=== PATIENT | female | born 1980 | race Caucasian/White ===

== ENCOUNTER 2021-04-27 12:51 | Emergency (ER) | payer OTHER ==
[2021-04-27 13:06] VITALS: BP 129/96
[2021-04-27] MEDS ORDERED: predniSONE 20 MG TABLET PO STA (13:19)
[2021-04-27] MEDS ORDERED: BENZONATATE 100 MG CAPSULE PO STA (13:19)
[2021-04-27] MEDS ORDERED: ALBUTEROL 1 PUFF INH STA (13:19)
--- NOTE | 2021-04-27 13:26 | ED Physician Documentation ---
History of Present Illness - Stated complaint Stated Complaint: FEVER/COUGH - Chief complaint Chief Complaint: Heent - History obtained from History obtained from: Patient - History of Present Illness Timing: How many days ago (4) Pain level max: 3 Pain level now: 2 - Additonal information Additional information: Patient is a 41-year-old female who recently drove here from [place]. Over the past 4 days has developed subjective fevers at home. Coughing, sore throat, rhinorrhea and congestion. Occasionally productive of brown sputum. She states that she has used inhalers in the past when she has become ill. Nothing makes it better or worse. She does have her Covid vaccination. Review of Systems Constitutional: reports: Chills Nose: reports: Rhinorrhea / runny nose, Congestion Throat: reports: Sore throat Respiratory: reports: Cough, Wheezing GI: denies: Abdominal Pain, Nausea, Vomiting, Diarrhea : denies: Dysuria, Now EGA Skin: denies: Rash Musculoskeletal: denies: Neck pain, Back pain PD PAST MEDICAL HISTORY - Past Medical History Past Medical History: Yes Endocrine/Autoimmune: Type 2 diabetes - Past Surgical History Past Surgical History: No - Present Medications Home Medications: Ambulatory Orders Medication Instructions Recorded Confirmed metFORMIN [Glucophage] 500 mg PO BIDWM 06/02/16 06/02/16 Albuterol Sulf [Ventolin Hfa 1 - 2 puffs INH Q4HR PRN #1 inhaler 04/27/21 Inhaler] Benzonatate [Tessalon] 200 mg PO TID PRN #30 cap 04/27/21 predniSONE [Deltasone] 40 mg PO DAILY #10 tablet 04/27/21 - Allergies Allergies/Adverse Reactions: Allergies Allergy/AdvReac Type Severity Reaction Status Date / Time cephalexin monohydrate * Allergy Rash Verified 04/27/21 13:06 [From Keflex] Penicillins Allergy Hives Verified 04/27/21 13:06 Sulfa (Sulfonamide Allergy Rash Verified 04/27/21 13:06 Antibiotics) - Social History Does the pt smoke?: No Smoking Status: Never smoker Does the pt drink ETOH?: No Does the pt have substance abuse?: No - Immunizations Immunizations are current?: Yes - POLST Patient has POLST: No PD ED PE NORMAL - Vitals Vital signs reviewed: Yes - General General: Alert and oriented X 3, No acute distress, Well developed/nourished - HEENT HEENT: PERRL, Ears normal, Moist mucous membranes, Pharynx benign, Other (No tonsillar exudates. Uvula midline. Normal phonation. No trismus. No stridor.) - Neck Neck: Supple, no meningeal sign, No adenopathy - Cardiac Cardiac: RRR - Respiratory Respiratory: No respiratory distress, Other (Mild wheezing and diminished breath sounds bilaterally) - Abdomen Abdomen: Soft, Non tender, Non distended - Derm Derm: Warm and dry, No rash - Extremities Extremities: No edema - Neuro Neuro: Alert and oriented X 3 - Psych Psych: Normal mood, Normal affect Results - Vitals Vitals: Vital Signs - 24 hr 04/27/21 04/27/21 13:03 13:33 Temperature 36.4 C L Heart Rate 98 62 Respiratory 16 16 Rate Blood Pressure 129/96 H O2 Saturation 96 Oxygen O2 Source Room air PD MEDICAL DECISION MAKING - ED course Complexity details: considered differential, d/w patient ED course: 41-year-old female with what appears to be a viral upper respiratory infection. She is very well-appearing, nontoxic. No evidence of pneumonia clinically. Will hold off on chest x-ray at this time. Will place on albuterol for home as well as steroids. Will prescribe Tessalon Perles as well. Patient counseled regarding signs and symptoms for which I believe and urgent re-evaluation would be necessary. Patient with good understanding of and agreement to plan and is comfortable going home at this time This document was made in part using voice recognition software. While efforts are made to proofread this document, sound alike and grammatical errors may occur. Departure - Departure Disposition: 01 Home, Self Care Clinical Impression: Viral URI Condition: Good Instructions: ED Viral Syndrome Follow-Up: your,doctor in 1 week [Other] Prescriptions: Albuterol Sulf [Ventolin Hfa Inhaler] 1 - 2 puffs INH Q4HR PRN #1 inhaler PRN Reason: Shortness Of Air/Wheezing predniSONE [Deltasone] 40 mg PO DAILY #10 tablet Benzonatate [Tessalon] 200 mg PO TID PRN #30 cap PRN Reason: Cough Comments: Follow-up with your doctor for further care. Return if you worsen. Drink plenty of fluids and rest.
== END 2021-04-27 13:53 | disposition home or self-care (01) ==
LOC: ED 12:51
DX: J06.9 Acute upper respiratory infection, unspecified (principal); E11.9 Type 2 diabetes mellitus without complications; Z79.84 Long term (current) use of oral hypoglycemic drugs
CPT/HCPCS: 94640; 99283; 99284; A9270; J7512

== ENCOUNTER 2021-05-12 18:03 | Emergency (ER) | payer OTHER ==
[2021-05-12] MEDS ORDERED: ONDANSETRON 4 MG/2 ML VIAL IVP STA (18:35)
[2021-05-12] MEDS ORDERED: SODIUM CHLORIDE 0.9% 1,000 ML IV STA (18:35)
[2021-05-12] MEDS ORDERED: HYDROmorphone 1 MG/ML CARPUJECT IVP STA ×2 (18:36→20:27)
[2021-05-12 18:42] LABS: BASOPHILS # (AUTO) 0.1 10^3/uL (0.0-0.1); BASOPHILS % (AUTO) 0.7 %; EOSINOPHILS # (AUTO) 0.2 10^3/uL (0.0-0.7); EOSINOPHILS % (AUTO) 1.5 %; HCT - HEMATOCRIT 44.3 % (37.0-47.0); HGB - HEMOGLOBIN 14.9 g/dL (12.0-16.0); LYMPHOCYTES # (AUTO) 1.7 10^3/uL (1.5-3.5); MEAN CORPUSCULAR HEMOGLOBIN 30.2 pg (27.0-31.0); MEAN CORPUSCULAR HGB CONC 33.6 g/dL (32.0-36.0); MEAN CORPUSCULAR VOLUME 89.9 fL (81.0-99.0); MEAN PLATELET VOLUME 9.8 fL (7.9-10.8); MONOCYTES # (AUTO) 0.6 10^3/uL (0.0-1.0); MONOCYTES % (AUTO) 5.4 %; PLT - PLATELET COUNT 362 10^3/uL (130-450); RED BLOOD COUNT 4.93 10^6/uL (4.20-5.40); WHITE BLOOD COUNT 10.5 x10^3/uL (4.8-10.8)
[2021-05-12 18:55] LABS: ALBUMIN/GLOBULIN RATIO 1.2 (1.0-2.2); BILIRUBIN,TOTAL 1.1 mg/dL (0.2-1.0); CALCIUM 9.1 mg/dL (8.5-10.3); CREATININE 0.8 mg/dL (0.4-1.0); TOTAL PROTEIN 7.3 g/dL (6.7-8.2)
--- NOTE | 2021-05-12 18:57 | ED Physician Documentation ---
History of Present Illness - Stated complaint Stated Complaint: VOMITING/ABD PX/DIARRHEA - Chief complaint Chief Complaint: Abd Pain - Additonal information Additional information: 41-year-old female presents emergency department for evaluation of 2 days periumbilical pain now located in the lower abdomen. She reports that she has been having vomiting and diarrhea as well. Her also had diarrhea and she thought perhaps they had the flu or food poisoning. However given the pain that is unrelenting she returns to the ER. She has had no fevers. Denies bloody output. No dysuria urgency or frequency. She feels very dehydrated. She is crying in the exam room secondary to the pain. Patient does report a history of intermittent diarrhea as well as bowel pain. She has been seen previously by a import specialist. She did for a brief period of time also have C. difficile. She has never had a colonoscopy but they have perhaps suspected that she has an inflammatory bowel disorder. Review of Systems Constitutional: denies: Fever, Chills Eyes: reports: Reviewed and negative Ears: reports: Reviewed and negative Throat: reports: Reviewed and negative Cardiac: reports: Reviewed and negative Respiratory: reports: Reviewed and negative GI: reports: Abdominal Pain, Nausea, Vomiting, Diarrhea : denies: Dysuria, Frequency, Hesitancy Skin: reports: Reviewed and negative PD PAST MEDICAL HISTORY - Past Medical History Endocrine/Autoimmune: Type 2 diabetes - Past Surgical History Past Surgical History: No - Present Medications Home Medications: Ambulatory Orders Medication Instructions Recorded Confirmed Dulaglutide [Trulicity] 1.5 mg PO Q7D 05/12/21 05/12/21 Lisinopril [Zestril] 2.5 mg PO DAILY PM 05/12/21 05/12/21 Metoclopramide [Reglan] 5 mg PO QID PRN 05/12/21 05/12/21 Non Formulary 05/12/21 05/12/21 Ondansetron HCl [Zofran] 8 mg PO Q6HR PRN 05/12/21 05/12/21 Ondansetron Odt [Zofran] 4 mg TL Q6H PRN #10 tablet 05/12/21 Oxycodone HCl/Acetaminophen 1 each PO BID PRN #8 tablet 05/12/21 [Percocet 5-325 mg Tablet] - Allergies Allergies/Adverse Reactions: Allergies Allergy/AdvReac Type Severity Reaction Status Date / Time cephalexin monohydrate * Allergy Rash Verified 04/27/21 13:06 [From Keflex] Penicillins Allergy Hives Verified 04/27/21 13:06 Sulfa (Sulfonamide Allergy Rash Verified 04/27/21 13:06 Antibiotics) vancomycin Allergy Hives Verified 05/12/21 18:22 - Social History Does the pt smoke?: No Smoking Status: Never smoker Does the pt drink ETOH?: No Does the pt have substance abuse?: No - Immunizations Immunizations are current?: Yes - POLST Patient has POLST: No PD ED PE EXPANDED - General General: Alert, In Pain - Cardiac Cardiac: Tachy, Radial strong equal, Pedal strong equal, Cap refill < 2 sec - Respiratory Respiratory: Clear to ausultation santino. No: Distress, Labored - Abdomen Abdomen: Normal Bowel sounds, Tender to palpation, Rebound, Guarding (Periumbilical and right lower quadrant tenderness with rebound.) - Derm Derm: Normal color, Warm and dry. No: Rash - Extremities Extremities: Normal. No: Deformity, Tenderness - Neuro Neuro: Alert and Oriented X 3, CNII-XII intact - GCS Eye Opening: Spontaneous Motor: Obeys Commands Verbal: Oriented Total: 15 Results - Vitals Vitals: Vital Signs - 24 hr 05/12/21 05/12/21 05/12/21 18:22 18:58 19:56 Temperature 36.5 C Heart Rate 97 83 Respiratory 16 Rate Blood Pressure 146/90 H 131/89 H O2 Saturation 98 91 L 94 05/12/21 21:00 Temperature 36.8 C Heart Rate 90 Respiratory 12 Rate Blood Pressure 134/92 H O2 Saturation 96 Oxygen O2 Source Room air - Labs Labs: Laboratory Tests 05/12/21 05/12/21 05/12/21 18:38 18:38 18:38 WBC 10.5 RBC 4.93 Hgb 14.9 Hct 44.3 MCV 89.9 MCH 30.2 MCHC 33.6 RDW 13.0 Plt Count 362 MPV 9.8 Neut # (Auto) 8.0 H Lymph # (Auto) 1.7 [place] # (Auto) 0.6 Eos # (Auto) 0.2 Baso # (Auto) 0.1 Absolute Nucleated RBC 0.00 Nucleated RBC % 0.0 Sodium 138 Potassium 4.0 Chloride 102 Carbon Dioxide 23 Anion Gap 13.0 BUN 11 Creatinine 0.8 Estimated GFR (MDRD) 79 L Glucose 166 H Calcium 9.1 Total Bilirubin 1.1 H AST 35 ALT 36 Alkaline Phosphatase 59 Total Protein 7.3 Albumin 4.0 Globulin 3.3 Albumin/Globulin Ratio 1.2 Lipase 27 HCG, Quant < 0.60 Urine Color Urine Clarity Urine pH Ur Specific [place] Urine Protein Urine Glucose (UA) Urine Ketones Urine Occult Blood Urine Nitrite Urine Bilirubin Urine Urobilinogen Ur Leukocyte Esterase Urine RBC Urine WBC Ur Squamous Epith Cells Amorphous Sediment Urine Bacteria Ur Microscopic Review Urine Culture Comments 05/12/21 19:53 WBC RBC Hgb Hct MCV MCH MCHC RDW Plt Count MPV Neut # (Auto) Lymph # (Auto) [place] # (Auto) Eos # (Auto) Baso # (Auto) Absolute Nucleated RBC Nucleated RBC % Sodium Potassium Chloride Carbon Dioxide Anion Gap BUN Creatinine Estimated GFR (MDRD) Glucose Calcium Total Bilirubin AST ALT Alkaline Phosphatase Total Protein Albumin Globulin Albumin/Globulin Ratio Lipase HCG, Quant Urine Color YELLOW Urine Clarity HAZY Urine pH 5.5 Ur Specific [place] >=1.030 H Urine Protein 30 H Urine Glucose (UA) NEGATIVE Urine Ketones TRACE Urine Occult Blood NEGATIVE Urine Nitrite NEGATIVE Urine Bilirubin NEGATIVE Urine Urobilinogen 0.2 (NORMAL) Ur Leukocyte Esterase NEGATIVE Urine RBC 0-5 Urine WBC 0-3 Ur Squamous Epith Cells FEW Squamous Amorphous Sediment Moderate Urine Bacteria Few Ur Microscopic Review INDICATED Urine Culture Comments NOT INDICATED - Rads (name of study) CT max fac Radiology: Final report received CT head Radiology: Final report received CT abd Radiology: Final report received (Markedly thickened distal small bowel including terminal ileum with surrounding free fluid. Overall appearance is suggestive of small bowel inflammation possible inflammatory bowel disease. The appendix is not definitively identified.) PD MEDICAL DECISION MAKING - ED course Complexity details: reviewed results, re-evaluated patient, d/w patient ED course: 41-year-old female presents emergency department with 2 days of abdominal pain diarrhea and vomiting. Her had similar. She does have a history of C. difficile colitis as well as a history that is suggestive of an inflammatory bowel disorder. Screening labs do not reveal any worrisome findings. Patient was given IV fluids Dilaudid and Zofran with good resolution of the symptoms. Given the history of C. difficile I offered stool testing but she was unable to provide a stool sample. The CT of the abdomen shows a thickened distal small bowel with surrounding free fluid. Given these findings I did offer her Augmentin antibiotic but with her history of C. difficile she is declining. She will be discharged with a prescription for Zofran as well as a limited amount of Aloxi for pain control. Emergent return precautions were discussed for worsening symptoms, fevers worsening diarrhea bloody diarrhea or any other emergent concerns. I am prescribing a short course of short-acting opioid pain medication for this patient. I have reviewed the patients [employer] and no concerning findings were noted. I have discussed that the opioids are for short term therapy only, and will not be refilled from the ED. Departure - Departure Disposition: Home, Self Care Clinical Impression: Inflammation of small intestine Abdominal pain Qualifiers: Abdominal location: generalized Qualified Code(s): R10.84 - Generalized abdominal pain Diarrhea Qualifiers: Diarrhea type: unspecified type Qualified Code(s): R19.7 - Diarrhea, unspecified Condition: Stable Record reviewed to determine appropriate education?: Yes Instructions: Abdominal Pain Prescriptions: Oxycodone HCl/Acetaminophen [Percocet 5-325 mg Tablet] 1 each PO BID PRN #8 tablet PRN Reason: Pain Ondansetron Odt [Zofran] 4 mg TL Q6H PRN #10 tablet PRN Reason: Nausea / Vomiting Comments: Rajni were seen in the emergency department today for abdominal pain vomiting and diarrhea. Your labs are essentially normal. The CT scan does show some inflammation at your distal small bowel where it connects to the colon. It is possible that you have an inflammatory bowel disorder. However because your also had diarrhea this could very likely be a viral gastroenteritis. It is important that you discuss your recurrent diarrhea and abdominal pain with your primary doctor. With your history you should be referred for colonoscopy. I am prescribing some Zofran to help with the nausea. Please drink plenty of liquids to stay hydrated. I am also prescribing a very limited amount of Percocet for severe pain. Please return to the emergency department if your symptoms worsen, you have bloody diarrhea, fevers or uncontrolled vomiting I am prescribing a short course of narcotic pain medication for you. These are potentially dangerous and addictive medications that should be used carefully. These medications may constipate you. Take an [id number] stool softener (docusate) twice daily with plenty of water while taking these medications. If you go 24 hours without a bowel movement, take [id number] miralax, per package instructions. Do not drink or drive while taking these medications. If you received narcotic or sedating medications while in the emergency department, do not drive for 24 hours. Store this medication in a safe, secure place and out of reach of children. It is a violation of federal law to give or sell this medication to another person or to use in a manner other than prescribed. The ED will not refill narcotic prescriptions, including prescriptions lost or stolen. To dispose of unwanted medications: 1. [facility] at [address] in [place] has a medication drop box. They accept prescription medications (in pill form) Sunday through Sunday 9:00 a.m. to 5:00 p.m. 2. The [facility] accepts prescription medications (in pill form only) for disposal year round. Call for more i nformation. 3. Contact the [facility] for the next [facility] sponsored prescription drug collection event. , [phone], or [phone]; Note that many narcotic pain relievers also contain Tylenol/acetaminophen. Please ensure that your total dose of acetaminophen from all sources does not exceed 3 g (3000 mg) per day.
[2021-05-12 19:59] LABS: GLUCOSE, URINE (UA) NEGATIVE (NEGATIVE); KETONES,URINE (UA) TRACE mg/dL (NEGATIVE); LEUKOCYTE ESTERASE, URINE NEGATIVE (NEGATIVE); NITRITE,URINE NEGATIVE (NEGATIVE); OCCULT BLOOD,URINE NEGATIVE (NEGATIVE); PH,URINE 5.5 PH (5.0-7.5); PROTEIN,URINE 30 mg/dL (NEGATIVE); UROBILINOGEN,URINE 0.2 (NORMAL) E.U./dL (NORMAL)
[2021-05-12 20:01] LABS: BILIRUBIN,URINE NEGATIVE (NEGATIVE); CLARITY,URINE HAZY (CLEAR); ICTOTEST,URINE NEGATIVE
[2021-05-12 20:15] LABS: AMORPHOUS SEDIMENT,UR Moderate /LPF; BACTERIA,URINE Few /HPF (None Seen); RBC,URINE 0-5 /HPF (0-5); SQUAMOUS EPITHELIAL CELL,UR FEW Squamous (<= Few); WBC,URINE 0-3 /HPF (0-5)
[2021-05-12] MEDS ORDERED: IOVERSOL 320 100 ML VIAL IVP ONE ×2 (20:16→21:03)
--- NOTE | 2021-05-12 21:29 | CT Report ---
PROCEDURE: Abdomen/Pelvis W INDICATIONS: periumbilical, RLQ abd pain CONTRAST: IV CONTRAST: Optiray 320 ml: 100 PO CONTRAST: *NO PO CONTRAST TECHNIQUE: After the administration of IV contrast, 5 mm thick sections acquired from the diaphragms to the symp hysis. 5 mm thick coronal and sagittal reformats were acquired. For radiation dose reduction, the f ollowing was used: automated exposure control, adjustment of mA and/or kV according to patient size. COMPARISON: None. FINDINGS: Image quality: Excellent. ABDOMEN: Lung bases: Lung bases are clear. Heart size is normal. Solid organs: Liver is enlarged with steatosis. The spleen is normal in size and enhancement. Gallb ladder has been removed Biliary system is non dilated. Pancreas enhances normally. No adrenal nodu les. Kidneys demonstrate normal size and enhancement, without hydronephrosis. Peritoneum and bowel: Bowel loops are nonobstructive. There is a thickened appearance of the distal small bowel extending across the terminal ileum. There is mild surrounding free fluid. The appendix i s not definitively identified. Nodes and vessels: No retroperitoneal or mesenteric adenopathy by size criteria. Aorta and inferior vena cava are normal in size. Miscellaneous: No ventral hernias. PELVIS: Genitourinary: Bladder wall thickness is normal. Miscellaneous: No inguinal hernias or adenopathy. Bones: No suspicious bony lesions. No vertebral body compression fractures. IMPRESSION: 1. Markedly thickened distal small bowel including the terminal ileum with surrounding free fluid. Ov erall appearance is suggestive of small bowel inflammation, possibly inflammatory bowel disease. 2. The appendix is not definitively identified. It may be partially obscured by overlying fluid. Paras mmend short interval imaging follow-up if there is no discernible response to therapy and further willi luation of the appendix is required. Reviewed by: Yeny Adkins MD on 05/12/2021 9:27 PM PDT Approved by: Yeny Adkins MD on 05/12/2021 9:27 PM PDT Station ID: [id number]
[2021-05-12 22:35] VITALS: BP 93/62
== END 2021-05-12 22:35 | disposition home or self-care (01) ==
LOC: ED 18:03
DX: K52.9 Noninfective gastroenteritis and colitis, unspecified (principal)
CPT/HCPCS: 36415; 74177; 80053; 81001; 83690; 84702; 85025; 96374; 96375; 96376; 99284; J1170; Q9967; 81003; 87086

== ENCOUNTER 2021-05-16 13:20 | Emergency (ER) | payer OTHER ==
[2021-05-16 13:31] VITALS: BP 126/88
[2021-05-16 13:54] LABS: GLUCOSE, URINE (UA) NEGATIVE (NEGATIVE); KETONES,URINE (UA) NEGATIVE (NEGATIVE); LEUKOCYTE ESTERASE, URINE NEGATIVE (NEGATIVE); NITRITE,URINE NEGATIVE (NEGATIVE); OCCULT BLOOD,URINE NEGATIVE (NEGATIVE); PROTEIN,URINE NEGATIVE (NEGATIVE); UROBILINOGEN,URINE 0.2 (NORMAL) E.U./dL (NORMAL)
[2021-05-16 14:13] LABS: BILIRUBIN,URINE NEGATIVE (NEGATIVE); CLARITY,URINE SL. CLOUDY (CLEAR); HCG UR QUAL NEGATIVE; ICTOTEST,URINE NEGATIVE
[2021-05-16 14:20] LABS: BACTERIA,URINE Few /HPF (None Seen); RBC,URINE 0-5 /HPF (0-5); SQUAMOUS EPITHELIAL CELL,UR MANY Squamous (<= Few); WBC,URINE 0-3 /HPF (0-5)
[2021-05-16 14:58] LABS: BASOPHILS % (AUTO) 0.7 %; EOSINOPHILS # (AUTO) 0.1 10^3/uL (0.0-0.7); EOSINOPHILS % (AUTO) 1.3 %; HCT - HEMATOCRIT 40.7 % (37.0-47.0); HGB - HEMOGLOBIN 13.7 g/dL (12.0-16.0); LYMPHOCYTES # (AUTO) 1.5 10^3/uL (1.5-3.5); LYMPHOCYTES % (AUTO) 24.5 %; MEAN CORPUSCULAR HEMOGLOBIN 30.1 pg (27.0-31.0); MEAN CORPUSCULAR HGB CONC 33.7 g/dL (32.0-36.0); MEAN CORPUSCULAR VOLUME 89.5 fL (81.0-99.0); MEAN PLATELET VOLUME 9.3 fL (7.9-10.8); MONOCYTES # (AUTO) 0.3 10^3/uL (0.0-1.0); MONOCYTES % (AUTO) 5.1 %; NEUTROPHILS # (AUTO) 4.2 10^3/uL (1.5-6.6); NEUTROPHILS % (AUTO) 68.4 %; PLT - PLATELET COUNT 364 10^3/uL (130-450); RED BLOOD COUNT 4.55 10^6/uL (4.20-5.40); RED CELL DISTRIBUTION WIDTH 12.9 % (12.0-15.0); WHITE BLOOD COUNT 6.1 x10^3/uL (4.8-10.8)
[2021-05-16 15:04] LABS: ALBUMIN 3.9 g/dL (3.2-5.5); ALBUMIN/GLOBULIN RATIO 1.2 (1.0-2.2); BILIRUBIN,TOTAL 0.6 mg/dL (0.2-1.0); CALCIUM 9.1 mg/dL (8.5-10.3); CREATININE 0.8 mg/dL (0.4-1.0); POTASSIUM 4.1 mmol/L (3.5-5.0); TOTAL PROTEIN 7.2 g/dL (6.7-8.2)
--- NOTE | 2021-05-16 15:59 | ED Physician Documentation ---
History of Present Illness - Stated complaint Stated Complaint: ABD PX - Chief complaint Chief Complaint: Abd Pain - History obtained from History obtained from: Patient - Additonal information Additional information: 41-year-old woman with past medical history of diabetic gastroparesis, high blood pressure, C. difficile infection, presents with 1 week of nonbloody nonbilious Nausea and vomiting as well as copious diarrhea that is sometimes bloody. She was seen here 4 days ago and told she may have inflammatory bowel disease versus a stomach bug. She has not been able to see a chain pegger and has returned due to persistent symptoms. She also brought a stool sample and was hoping that we could send it for C. difficile.Denies fever. subjective chills And diffuse cramping abdominal discomfort that is constant, worse with vomiting, nonradiating, mild. Denies urinary symptoms Review of Systems Ten Systems: 10 systems reviewed and negative Constitutional: denies: Fever, Chills GI: reports: Abdominal Pain, Nausea, Vomiting, Diarrhea, Bloody / black stool : denies: Dysuria, Frequency Neurologic: reports: Generalized weakness PD PAST MEDICAL HISTORY - Past Medical History Endocrine/Autoimmune: Type 2 diabetes GI: C.difficile - Past Surgical History Past Surgical History: No - Present Medications Home Medications: Ambulatory Orders Medication Instructions Recorded Confirmed Dulaglutide [Trulicity] 1.5 mg PO Q7D 05/12/21 05/12/21 Lisinopril [Zestril] 2.5 mg PO DAILY PM 05/12/21 05/12/21 Metoclopramide [Reglan] 5 mg PO QID PRN 05/12/21 05/12/21 Non Formulary 05/12/21 05/12/21 Ondansetron HCl [Zofran] 8 mg PO Q6HR PRN 05/12/21 05/12/21 Ondansetron Odt [Zofran] 4 mg TL Q6H PRN #10 tablet 05/12/21 Oxycodone HCl/Acetaminophen 1 each PO BID PRN #8 tablet 05/12/21 [Percocet 5-325 mg Tablet] Lactobacillus Acidophilus 1 each PO QDAC #30 tablet 05/16/21 [Acidophilus] Promethazine [Phenergan] 25 mg PO Q6H PRN #10 tablet 05/16/21 metroNIDAZOLE [Flagyl] 500 mg PO TID #30 tablet 05/16/21 - Allergies Allergies/Adverse Reactions: Allergies Allergy/AdvReac Type Severity Reaction Status Date / Time cephalexin monohydrate * Allergy Rash Verified 05/16/21 13:23 [From Keflex] Penicillins Allergy Hives Verified 05/16/21 13:23 Sulfa (Sulfonamide Allergy Rash Verified 05/16/21 13:23 Antibiotics) vancomycin Allergy Hives Verified 05/16/21 13:23 - Social History Does the pt smoke?: No Smoking Status: Never smoker Does the pt drink ETOH?: No Does the pt have substance abuse?: No - Immunizations Immunizations are current?: Yes - POLST Patient has POLST: No PD ED PE NORMAL - Vitals Vital signs reviewed: Yes - General General: Alert and oriented X 3, No acute distress, Well developed/nourished - HEENT HEENT: Atraumatic, PERRL, EOMI - Neck Neck: Supple, no meningeal sign - Cardiac Cardiac: RRR - Respiratory Respiratory: No respiratory distress, Clear bilaterally - Abdomen Abdomen: Non tender, Non distended, Other (Diffuse discomfort to palpation) - Back Back: No CVA TTP - Derm Derm: Normal color, Warm and dry - Extremities Extremities: No deformity - Neuro Neuro: Alert and oriented X 3 - Psych Psych: Normal mood, Normal affect Results - Vitals Vitals: Vital Signs - 24 hr 05/16/21 13:23 Temperature 36.6 C Heart Rate 100 Respiratory 16 Rate Blood Pressure 126/88 H O2 Saturation 98 Oxygen O2 Source Room air - Labs Labs: Laboratory Tests 05/16/21 05/16/21 05/16/21 13:40 14:48 14:48 WBC 6.1 RBC 4.55 Hgb 13.7 Hct 40.7 MCV 89.5 MCH 30.1 MCHC 33.7 RDW 12.9 Plt Count 364 MPV 9.3 Neut # (Auto) 4.2 Lymph # (Auto) 1.5 [place] # (Auto) 0.3 Eos # (Auto) 0.1 Baso # (Auto) 0.0 Absolute Nucleated RBC 0.00 Nucleated RBC % 0.0 Sodium 138 Potassium 4.1 Chloride 103 Carbon Dioxide 23 Anion Gap 12.0 BUN 8 Creatinine 0.8 Estimated GFR (MDRD) 79 L Glucose 120 H Calcium 9.1 Total Bilirubin 0.6 AST 42 ALT 29 Alkaline Phosphatase 60 Total Protein 7.2 Albumin 3.9 Globulin 3.3 Albumin/Globulin Ratio 1.2 Lipase 23 Urine Color YELLOW Urine Clarity SL. CLOUDY Urine pH 6.0 Ur Specific [place] >=1.030 H Urine Protein NEGATIVE Urine Glucose (UA) NEGATIVE Urine Ketones NEGATIVE Urine Occult Blood NEGATIVE Urine Nitrite NEGATIVE Urine Bilirubin NEGATIVE Urine Urobilinogen 0.2 (NORMAL) Ur Leukocyte Esterase NEGATIVE Urine RBC 0-5 Urine WBC 0-3 Ur Squamous Epith Cells MANY Squamous H Urine Bacteria Few Ur Microscopic Review INDICATED Urine Culture Comments NOT INDICATED Urine HCG, Qual NEGATIVE PD MEDICAL DECISION MAKING - ED course ED course: 41-year-old woman presents with persistent abdominal pain, nausea vomiting and diarrhea. She had thickening of the terminal ileum on prior CT. She is well- appearing here with normal lab work and asymptomatic. She did bring a stool specimen to send for C. difficile and we will prescribe antibiotics given that I have a high suspicion for C. difficile versus IBD vs viral gastroenteritis. Sally marykayla will follow up with her primary doctor for referral to gastroenterology. Return precautions given. Impression 1Nausea and vomiting 2Diarrhea 3Abdominal pain Departure - Departure Disposition: Home, Self Care Condition: Good Instructions: Abdominal Pain, Diarrhea, Nausea Vomit Control Follow-Up: TASHA HURTADO MD [Physician No Access] - Prescriptions: Lactobacillus Acidophilus [Acidophilus] 1 each PO QDAC #30 tablet metroNIDAZOLE [Flagyl] 500 mg PO TID #30 tablet Promethazine [Phenergan] 25 mg PO Q6H PRN #10 tablet PRN Reason: Nausea / Vomiting Comments: You were seen in the emergency department for persistent vomiting and diarrhea. A Covid swab was sent and should result in 48 to 72 hours. You can view the results on your patient health portal. We will call you if it is positive. C. difficile specimen was also sent. Fill your antibiotics if it comes back positive. Plan to follow-up with chain pegger for evaluation for inflammatory bowel disease. Return to the emergency department if you have any new or worsening symptoms or other concerns.
== END 2021-05-16 16:19 | disposition home or self-care (01) ==
LOC: ED 13:20
DX: R11.2 Nausea with vomiting, unspecified (principal); R19.7 Diarrhea, unspecified; R10.84 Generalized abdominal pain; E11.43 Type 2 diabetes mellitus with diabetic autonomic (poly)neuropathy; K31.84 Gastroparesis; Z79.84 Long term (current) use of oral hypoglycemic drugs; Z87.19 Personal history of other diseases of the digestive system; Z20.822 Contact with and (suspected) exposure to COVID-19
CPT/HCPCS: 36415; 80053; 81001; 81003; 81025; 83690; 85025; 87086; 87493; 99283; 99284

== ENCOUNTER 2021-08-14 13:59 | Emergency (ER) | payer OTHER ==
--- NOTE | 2021-08-14 15:01 | ED Physician Documentation ---
History of Present Illness - Stated complaint Stated Complaint: L SHOULD/R HAND/NECK PX - Chief complaint Chief Complaint: Trauma Ext - History obtained from History obtained from: Patient - Additonal information Additional information: Patient comes emergency department chief complaint of right hand and left shoulder pain after being bucked off a horse approximately 30 minutes prior to arrival. Patient states she had put her Foot in the stirrup and was holding the bridle with her right hand when the horse took off running. She states her foot was stuck in the stirrup and She was still hanging on with her right hand. He states he got romina a lot before finally shaking her foot loose from the stirrup and falling to the ground. She states she landed on her left shoulder and felt a pain in the shoulder over the top and lateral aspect, as well as felt a pop in her left neck after which she "saw stars". Patient states that she has noticed a bruise and some swelling on her hand. No spinal pain. No numbness or tingling. No abdominal or chest pain. No rib pain. No other complaints at this time. Review of Systems Ten Systems: 10 systems reviewed and negative Constitutional: reports: Reviewed and negative Eyes: reports: Reviewed and negative Ears: reports: Reviewed and negative Nose: reports: Reviewed and negative Throat: reports: Reviewed and negative Cardiac: reports: Reviewed and negative Respiratory: reports: Reviewed and negative GI: reports: Reviewed and negative : reports: Reviewed and negative Skin: reports: Reviewed and negative Musculoskeletal: reports: Extremity pain, Joint pain Neurologic: reports: Reviewed and negative Psychiatric: reports: Reviewed and negative Endocrine: reports: Reviewed and negative Immunocompromised: reports: Reviewed and negative PD PAST MEDICAL HISTORY - Past Medical History Endocrine/Autoimmune: Type 2 diabetes GI: C.difficile - Past Surgical History Past Surgical History: No - Present Medications Home Medications: Ambulatory Orders Medication Instructions Recorded Confirmed Dulaglutide [Trulicity] 3 mg PO Q7D 05/12/21 08/14/21 Lisinopril [Zestril] 2.5 mg PO DAILY PM 05/12/21 08/14/21 Metoclopramide [Reglan] 5 mg PO QID PRN 05/12/21 08/14/21 Non Formulary 05/12/21 05/12/21 Cyclobenzaprine [Flexeril] 10 mg PO TID PRN #20 tablet 08/14/21 Ergocalciferol [Vitamin D2] 1 cap PO DAILY 08/14/21 08/14/21 Hyoscyamine Sulfate 1 tab PO DAILY 08/14/21 08/14/21 Pantoprazole [Protonix] 40 mg PO DAILY 08/14/21 08/14/21 - Allergies Allergies/Adverse Reactions: Allergies Allergy/AdvReac Type Severity Reaction Status Date / Time cephalexin monohydrate * Allergy Rash Verified 08/14/21 14:25 [From Keflex] Penicillins Allergy Hives Verified 08/14/21 14:25 Sulfa (Sulfonamide Allergy Rash Verified 08/14/21 14:25 Antibiotics) vancomycin Allergy Hives Verified 08/14/21 14:25 - Social History Does the pt smoke?: No Smoking Status: Never smoker Does the pt drink ETOH?: No Does the pt have substance abuse?: No - Immunizations Immunizations are current?: Yes - POLST Patient has POLST: No PD ED PE NORMAL - Vitals Vital signs reviewed: Yes - General General: Alert and oriented X 3, No acute distress, Well developed/nourished - HEENT HEENT: Atraumatic, PERRL, EOMI, Moist mucous membranes - Neck Neck: Supple, no meningeal sign, No bony TTP, Other (Tenderness left neck muscul ature, particularly superolateral aspect of left trapezius.) - Cardiac Cardiac: RRR, No murmur, Strong equal pulses - Respiratory Respiratory: No respiratory distress, Clear bilaterally - Abdomen Abdomen: Soft, Non tender, Non distended - Back Back: No spinal TTP - Derm Derm: Warm and dry, Other (Contusion right palm over second MCP joint.) - Extremities Extremities: No deformity, Other (Edema dorsal aspect right hand surrounding third MCP joint. No deformity. Notable tenderness over left AC joint without particular prominence. 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, Normal speech - Psych Psych: Normal mood, Normal affect Results - Vitals Vitals: Vital Signs - 24 hr 08/14/21 08/14/21 14:12 16:40 Temperature 36.8 C 36.6 C Heart Rate 94 75 Respiratory 20 16 Rate Blood Pressure 147/93 H 121/96 H O2 Saturation 95 99 Oxygen O2 Source Room air - Rads (name of study) Right hand x-ray Radiology: Final report received, EMP read indepedently, See rad report (Negative) Left shoulder x-ray Radiology: Final report received, EMP read indepedently, See rad report (Negative) PD MEDICAL DECISION MAKING - ED course Complexity details: reviewed results, re-evaluated patient, considered differential, d/w patient ED course: Patient was treated with Toradol and Vicodin and sent for x-rays of the hand and shoulder, which were negative. We have discussed home management of the symptoms, as well as the usual indications for return. Departure - Departure Disposition: 01 Home, Self Care Clinical Impression: Cervical strain, acute Shoulder contusion Qualifiers: Encounter type: initial encounter Laterality: left Qualified Code(s): S40.012A - Contusion of left shoulder, initial encounter Hand contusion Qualifiers: Encounter type: initial encounter Laterality: right Qualified Code(s): S60.221A - Contusion of right hand, initial encounter Condition: Stable Instructions: ED Contusion Hand, ED Sprain Strain Neck Prescriptions: Cyclobenzaprine [Flexeril] 10 mg PO TID PRN #20 tablet PRN Reason: Spasms Comments: Your x-ray series both look good. There were no broken bones, and actually, your AC joint is well aligned. You may have strained the AC joint but most likely, you have bruised both your right hand and your left shoulder and strained your neck. You will probably have some stiffness and soreness tomorrow. You may take the medication prescribed as needed for this. Discharge Date/Time: 08/14/21 16:40
[2021-08-14] MEDS ORDERED: HYDROcod/ACETAM 5/325 MG TABLET PO STA (15:05)
[2021-08-14] MEDS ORDERED: KETOROLAC 60 MG/2 ML VIAL IM STA (15:05)
--- NOTE | 2021-08-14 15:51 | XRAY Report ---
PROCEDURE: Hand 3 View RT INDICATIONS: fall from horse, pain TECHNIQUE: 3 views of the hand(s) acquired. COMPARISON: None FINDINGS: Bones: No fractures or dislocations. No suspicious bony lesions. Soft tissues: No suspicious soft tissue calcifications. IMPRESSION: Unremarkable right hand radiographs Reviewed by: Eduardo Barrera MD on 08/14/2021 2:50 PM AKDT Approved by: Eduardo Barrera MD on 08/14/2021 2:50 PM AKDT Station ID: [id number]
--- NOTE | 2021-08-14 15:52 | XRAY Report ---
PROCEDURE: Shoulder 3 View LT INDICATIONS: fall from horse, pain TECHNIQUE: 3 views of the shoulder were acquired. COMPARISON: None. FINDINGS: Bones: No fractures or dislocations. No suspicious bony lesions. Visualized ribs appear intact. Soft tissues: No suspicious soft tissue calcifications. IMPRESSION: Unremarkable left shoulder radiographs Reviewed by: Eduardo Barrera MD on 08/14/2021 2:50 PM AKDT Approved by: Eduardo Barrera MD on 08/14/2021 2:50 PM AKDT Station ID: [id number]
[2021-08-14 16:50] VITALS: BP 121/96
== END 2021-08-14 16:40 | disposition home or self-care (01) ==
LOC: ED 13:59
DX: S16.1XXA Strain of muscle, fascia and tendon at neck level, initial encounter (principal); S60.221A Contusion of right hand, initial encounter; S40.012A Contusion of left shoulder, initial encounter; V80.010A Animal-rider injured by fall from or being thrown from horse in noncollision accident, initial encounter; Y93.52 Activity, horseback riding; E11.9 Type 2 diabetes mellitus without complications; Z79.84 Long term (current) use of oral hypoglycemic drugs
CPT/HCPCS: 73030; 73130; 96372; 99284; A9270

== ENCOUNTER 2021-10-26 08:12 | Outpatient (CLI) | payer OTHER ==
--- NOTE | 2021-10-26 11:46 | MRI Report ---
PROCEDURE: Shoulder LT W/O INDICATIONS: LEFT SHOULDER PAIN TECHNIQUE: Noncontrast oblique coronal T2 fast spin echo with fat saturation, oblique sagittal T1 spin echo and T2 fast spin echo with fat saturation, axial T1 spin echo and T2 fast spin echo with fat saturation t hrough the shoulder. COMPARISON: Shoulder radiograph dated 08/14/2021.. FINDINGS: Image quality: Excellent. Rotator cuff: Distal supraspinatus tendinosis and low-grade articular and bursal surface partial-thic kness tear at its insertion on humeral head is seen extending to musculotendinous junction. Distal in fraspinatus tendinosis is seen. Distal subscapularis tendinosis is also noted. No full-thickness rota tor cuff tendon rupture. No rotator cuff muscle atrophy on sagittal images. Bones and bursae: No bone marrow contusions or fractures. [id number] acromioclavicular joint o steoarthritic changes are seen with joint space narrowing and downward osteophyte formation depressin g on musculotendinous junction of supraspinatus. There is small amount of joint fluid and subacromial subdeltoid bursal fluid. Capsule and soft tissues: In the absence of intra-articular contrast, the labrum and glenohumeral li gaments appear intact. The long head of the biceps tendon demonstrates normal location and morpholog y. The rotator interval appears normal, without fibrosis. The coracohumeral ligament is normal in t hickness. IMPRESSION: 1. Tendinosis and low-grade articular and bursal surface partial-thickness tear involving distal supr aspinatus extending to musculotendinous junction. Distal infraspinatus and subscapularis tendinosis. No full-thickness rotator cuff tendon rupture. 2. Mild to moderate acromioclavicular joint osteoarthritis. No fracture or dislocation. 3. No gross focal labral tear. Reviewed by: Ashvin Jeffries MD on 10/26/2021 11:45 AM PST Approved by: Ashvin Jeffries MD on 10/26/2021 11:45 AM PST Station ID: [id number]
== END 2021-10-26 08:13 | disposition home or self-care (01) ==
LOC: DI 08:12
PROVIDERS: ATTEND Student in an Organized Health Care Education/Training Program
DX: M75.112 Incomplete rotator cuff tear or rupture of left shoulder, not specified as traumatic (principal); M19.012 Primary osteoarthritis, left shoulder

== ENCOUNTER 2023-06-04 10:32 | Outpatient (CLI) | payer OTHER | END 2023-06-04 23:59 | disposition EMS.NT | LOC: EMS 10:32 | DX: R11.2 Nausea with vomiting, unspecified (principal); R42 Dizziness and giddiness ==

== ENCOUNTER 2023-06-04 10:54 | Emergency (ER) | payer OTHER ==
[2023-06-04] MEDS ORDERED: SODIUM CHLORIDE 0.9% 1,000 ML IV STA (11:36)
[2023-06-04] MEDS ORDERED: ONDANSETRON 4 MG/2 ML VIAL IVP STA (11:38)
[2023-06-04] MEDS ORDERED: MECLIZINE 12.5 MG TABLET PO STA (11:47)
--- NOTE | 2023-06-04 11:47 | ED Physician Documentation ---
History of Present Illness - Stated complaint Stated Complaint: DIZZINESS,NAUSEA,VOMIT - Chief complaint Chief Complaint: Neuro - History obtained from History obtained from: Patient - History of Present Illness Timing: Today - Additonal information Additional information: Patient is a 43-year-old female who presents to the emergency department with sudden onset dizziness today along with nausea and vomiting. Feels like the room is spinning. Worse with movement, better with rest. No headache. No recent illness. Has a longstanding history of TMJ, awaiting referral from her dentist to a TMJ specialist. Denies any possibility of . No trauma. No head injury. Review of Systems Constitutional: denies: Fever, Chills Nose: denies: Rhinorrhea / runny nose, Congestion Skin: denies: Rash Neurologic: denies: Headache PD PAST MEDICAL HISTORY - Past Medical History Past Medical History: Yes Endocrine/Autoimmune: Type 2 diabetes GI: C.difficile - Past Surgical History Past Surgical History: No - Present Medications Home Medications: Ambulatory Orders Medication Instructions Recorded Confirmed Dulaglutide [Trulicity] 3 mg PO Q7D 05/12/21 08/14/21 Lisinopril [Zestril] 2.5 mg PO DAILY PM 05/12/21 08/14/21 Metoclopramide [Reglan] 5 mg PO QID PRN 05/12/21 08/14/21 Non Formulary 05/12/21 05/12/21 Cyclobenzaprine [Flexeril] 10 mg PO TID PRN #20 tablet 08/14/21 Ergocalciferol [Vitamin D2] 1 cap PO DAILY 08/14/21 08/14/21 Hyoscyamine Sulfate 1 tab PO DAILY 08/14/21 08/14/21 Pantoprazole [Protonix] 40 mg PO DAILY 08/14/21 08/14/21 Meclizine HCl [Motion Sickness] 25 mg PO Q6H PRN #30 tablet 06/04/23 Ondansetron Odt [Zofran] 4 mg TL Q6H PRN #10 tablet 06/04/23 - Allergies Allergies/Adverse Reactions: Allergies Allergy/AdvReac Type Severity Reaction Status Date / Time cephalexin monohydrate * Allergy Rash Verified 08/14/21 14:25 [From Keflex] Penicillins Allergy Hives Verified 08/14/21 14:25 Sulfa (Sulfonamide Allergy Rash Verified 08/14/21 14:25 Antibiotics) vancomycin Allergy Hives Verified 08/14/21 14:25 - Living Situation Living Arrangement: reports: At home - Social History Does the pt smoke?: No Smoking Status: Never smoker Does the pt drink ETOH?: No Does the pt have substance abuse?: No - Family History Family history: reports: Non contributory - Immunizations Immunizations are current?: Yes - POLST Patient has POLST: No PD ED PE NORMAL - Vitals Vital signs reviewed: Yes - General General: Alert and oriented X 3, No acute distress - HEENT HEENT: Ears normal, Moist mucous membranes, Pharynx benign, Other (Able to open and close mouth well, no gross jaw dislocation.) - Neck Neck: Supple, no meningeal sign - Cardiac Cardiac: RRR, Strong equal pulses - Respiratory Respiratory: No respiratory distress, Clear bilaterally - Abdomen Abdomen: Soft, Non tender, Non distended - Back Back: No CVA TTP, No spinal TTP - Derm Derm: Warm and dry, No rash - Extremities Extremities: No edema - Neuro Neuro: Alert and oriented X 3, 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, No motor deficit, No sensory deficit, Normal speech, Other (Positive Hallpike to the left with left horizontal nystagmus) Eye Opening: Spontaneous Motor: Obeys Commands Verbal: Oriented GCS Score: 15 Results - Vitals Vitals: Vital Signs - 24 hr 06/04/23 06/04/23 06/04/23 11:08 12:05 13:16 Temperature 36.8 C Heart Rate 68 57 L 74 Respiratory 18 18 19 Rate Blood Pressure 156/98 H 146/96 H 135/89 H O2 Saturation 100 98 100 06/04/23 13:37 Temperature Heart Rate 62 Respiratory 15 Rate Blood Pressure 129/79 O2 Saturation 99 Oxygen O2 Source Room air - Labs Labs: Laboratory Tests 06/04/23 06/04/23 06/04/23 11:53 11:55 11:55 WBC 7.6 RBC 4.52 Hgb 13.3 Hct 41.5 MCV 91.8 MCH 29.4 MCHC 32.0 RDW 12.6 Plt Count 327 MPV 9.7 Neut # (Auto) 5.3 Lymph # (Auto) 1.8 [place] # (Auto) 0.3 Eos # (Auto) 0.1 Baso # (Auto) 0.1 Absolute Nucleated RBC 0.00 Nucleated RBC % 0.0 Sodium 140 Potassium 4.1 Chloride 106 Carbon Dioxide 27 Anion Gap 7.0 BUN 9 Creatinine 0.7 Estimated GFR (MDRD) 91 Glucose 109 H Calcium 9.4 Total Bilirubin 0.3 AST 17 ALT 20 Alkaline Phosphatase 62 Total Protein 6.8 Albumin 4.1 Globulin 2.7 Albumin/Globulin Ratio 1.5 Lipase 22 Urine Color YELLOW Urine Clarity CLEAR Urine pH 6.0 Ur Specific [place] 1.015 Urine Protein NEGATIVE Urine Glucose (UA) NEGATIVE Urine Ketones NEGATIVE Urine Occult Blood NEGATIVE Urine Nitrite NEGATIVE Urine Bilirubin NEGATIVE Urine Urobilinogen 0.2 (NORMAL) Ur Leukocyte Esterase NEGATIVE Ur Microscopic Review NOT INDICATED Urine Culture Comments NOT INDICATED Urine HCG, Qual NEGATIVE PD Medical Decision Making - ED course Complexity details: reviewed results, re-evaluated patient, considered differential, d/w patient ED course: 43-year-old female presents to the emergency department with BPPV, affecting the left ear. Feels better after meclizine. Does have a history of diabetes and was vomiting so electrolytes were checked and IV fluids given. No further vomiting here. We will have her follow-up with her doctor for further care. No indication for emergent neuroimaging. Normal cerebellar testing. Normal gait. Patient counseled regarding signs and symptoms for which I believe and urgent re-evaluation would be necessary. Patient with good understanding of and agreement to plan and is comfortable going home at this time This document was made in part using voice recognition software. While efforts are made to proofread this document, sound alike and grammatical errors may occur. Departure - Departure Disposition: 01 Home, Self Care Clinical Impression: BPPV (benign paroxysmal positional vertigo) Qualifiers: Laterality: left Qualified Code(s): H81.12 - Benign paroxysmal vertigo, left ear Condition: Good Instructions: ED BPV Vertigo Follow-Up: ANTHONY HENSON MD [Primary Care Provider] - Within 1 week Prescriptions: Meclizine HCl [Motion Sickness] 25 mg PO Q6H PRN #30 tablet PRN Reason: Dizziness Ondansetron Odt [Zofran] 4 mg TL Q6H PRN #10 tablet PRN Reason: Nausea / Vomiting Comments: Please follow-up with your doctor as needed for further care. Please return if you worsen. Your prescriptions were sent to [email or web address] in [place]. When you return home you can watch videos on YouTube of the half somersault maneuver for vertigo and the Martita maneuver for vertigo. These will both help repositioning of the otoliths in your ear. Forms: Activity restrictions Discharge Date/Time: 06/04/23 13:38
[2023-06-04 12:09] LABS: BILIRUBIN,URINE NEGATIVE (NEGATIVE); GLUCOSE, URINE (UA) NEGATIVE (NEGATIVE); KETONES,URINE (UA) NEGATIVE (NEGATIVE); LEUKOCYTE ESTERASE, URINE NEGATIVE (NEGATIVE); NITRITE,URINE NEGATIVE (NEGATIVE); OCCULT BLOOD,URINE NEGATIVE (NEGATIVE); PROTEIN,URINE NEGATIVE (NEGATIVE); UROBILINOGEN,URINE 0.2 (NORMAL) E.U./dL (NORMAL)
[2023-06-04 12:11] LABS: BASOPHILS # (AUTO) 0.1 10^3/uL (0.0-0.1); BASOPHILS % (AUTO) 0.8 %; EOSINOPHILS # (AUTO) 0.1 10^3/uL (0.0-0.7); EOSINOPHILS % (AUTO) 0.7 %; HCT - HEMATOCRIT 41.5 % (37.0-47.0); HGB - HEMOGLOBIN 13.3 g/dL (12.0-16.0); LYMPHOCYTES # (AUTO) 1.8 10^3/uL (1.5-3.5); MEAN CORPUSCULAR HEMOGLOBIN 29.4 pg (27.0-31.0); MEAN CORPUSCULAR VOLUME 91.8 fL (81.0-99.0); MEAN PLATELET VOLUME 9.7 fL (7.9-10.8); MONOCYTES # (AUTO) 0.3 10^3/uL (0.0-1.0); MONOCYTES % (AUTO) 4.1 %; NEUTROPHILS # (AUTO) 5.3 10^3/uL (1.5-6.6); NEUTROPHILS % (AUTO) 70.1 %; PLT - PLATELET COUNT 327 10^3/uL (130-450); RED BLOOD COUNT 4.52 10^6/uL (4.20-5.40); RED CELL DISTRIBUTION WIDTH 12.6 % (12.0-15.0); WHITE BLOOD COUNT 7.6 x10^3/uL (4.8-10.8)
[2023-06-04 12:11] LABS: CLARITY,URINE CLEAR (CLEAR); HCG UR QUAL NEGATIVE
[2023-06-04 12:45] LABS: ALBUMIN 4.1 g/dL (3.2-5.5); ALBUMIN/GLOBULIN RATIO 1.5 (1.0-2.2); BILIRUBIN,TOTAL 0.3 mg/dL (0.2-1.0); CALCIUM 9.4 mg/dL (8.5-10.3); CREATININE 0.7 mg/dL (0.6-1.3); POTASSIUM 4.1 mmol/L (3.5-4.5); TOTAL PROTEIN 6.8 g/dL (6.4-8.9)
[2023-06-04 13:47] VITALS: BP 129/79
== END 2023-06-04 13:38 | disposition home or self-care (01) ==
LOC: ED 10:54
DX: H81.12 Benign paroxysmal vertigo, left ear (principal)
CPT/HCPCS: 36415; 80053; 81003; 81025; 83690; 85025; 96374; 99283; A9270; 81001; 87086

== ENCOUNTER 2023-07-07 08:31 | Emergency (ER) | payer OTHER ==
[2023-07-07 08:54] LABS: BASOPHILS % (AUTO) 0.9 %; EOSINOPHILS # (AUTO) 0.1 10^3/uL (0.0-0.7); EOSINOPHILS % (AUTO) 1.1 %; HCT - HEMATOCRIT 40.1 % (37.0-47.0); HGB - HEMOGLOBIN 13.1 g/dL (12.0-16.0); LYMPHOCYTES # (AUTO) 1.7 10^3/uL (1.5-3.5); LYMPHOCYTES % (AUTO) 37.1 %; MEAN CORPUSCULAR HEMOGLOBIN 29.7 pg (27.0-31.0); MEAN CORPUSCULAR HGB CONC 32.7 g/dL (32.0-36.0); MEAN CORPUSCULAR VOLUME 90.9 fL (81.0-99.0); MEAN PLATELET VOLUME 9.2 fL (7.9-10.8); MONOCYTES # (AUTO) 0.3 10^3/uL (0.0-1.0); MONOCYTES % (AUTO) 6.6 %; NEUTROPHILS # (AUTO) 2.5 10^3/uL (1.5-6.6); NEUTROPHILS % (AUTO) 54.1 %; PLT - PLATELET COUNT 272 10^3/uL (130-450); RED BLOOD COUNT 4.41 10^6/uL (4.20-5.40); RED CELL DISTRIBUTION WIDTH 12.2 % (12.0-15.0); WHITE BLOOD COUNT 4.7 x10^3/uL (4.8-10.8)
--- NOTE | 2023-07-07 08:56 | ED Physician Documentation ---
PD HPI NVD - Stated complaint Stated Complaint: - Chief complaint Chief Complaint: Abd Pain - History obtained from History obtained from: Patient - History of Present Illness Timing - onset: Today, Last night Timing - duration: Days (2) Timing - details: Abrupt onset, Still present Associated symptoms: Abdominal pain, Loss of appetite. No: Fever, Near syncope / syncope Contributing factors: No: Sick contact, Bad food, Diabetes Improved by: No: BM, Position Worsened by: Eating. No: Breathing Similar symptoms before: Has not had sx before Recently seen: Not recently seen Review of Systems Constitutional: reports: Myalgias. denies: Fever, Chills Nose: denies: Rhinorrhea / runny nose, Congestion Throat: denies: Sore throat Respiratory: denies: Cough GI: reports: Abdominal Pain, Nausea. denies: Vomiting, Constipation, Diarrhea : reports: Dysuria. denies: Frequency, Discharge Skin: denies: Rash Neurologic: reports: Generalized weakness. denies: Focal weakness, Numbness, Near syncope PD PAST MEDICAL HISTORY - Past Medical History Cardiovascular: None Respiratory: None Neuro: None Endocrine/Autoimmune: Type 2 diabetes GI: C.difficile - Past Surgical History Past Surgical History: No - Present Medications Home Medications: Ambulatory Orders Medication Instructions Recorded Confirmed Dulaglutide [Trulicity] 3 mg PO Q7D 05/12/21 07/07/23 Metoclopramide [Reglan] 5 mg PO QID PRN 05/12/21 07/07/23 Cyclobenzaprine [Flexeril] 10 mg PO TID PRN #20 tablet 08/14/21 07/07/23 Ergocalciferol [Vitamin D2] 1 cap PO DAILY 08/14/21 07/07/23 Hyoscyamine Sulfate 1 tab PO DAILY 08/14/21 07/07/23 Meclizine HCl [Motion Sickness] 25 mg PO Q6H PRN #30 tablet 06/04/23 07/07/23 Docusate Sodium 100Mg Capsule 100 mg PO DAILY #20 cap 07/07/23 [Colace 100Mg Capsule] Naproxen 500 mg PO BID #20 tab 07/07/23 Ondansetron Odt [Zofran] 4 mg TL Q6H PRN #10 tablet 07/07/23 Oxycodone HCl/Acetaminophen 1 each PO Q6H PRN #15 tablet 07/07/23 [Percocet 5-325 mg Tablet] traZODone [Desyrel] 50 mg PO HS PRN 07/07/23 07/07/23 - Allergies Allergies/Adverse Reactions: Allergies Allergy/AdvReac Type Severity Reaction Status Date / Time cephalexin monohydrate * Allergy Rash Verified 07/07/23 08:34 [From Keflex] Penicillins Allergy Hives Verified 07/07/23 08:34 Sulfa (Sulfonamide Allergy Rash Verified 07/07/23 08:34 Antibiotics) vancomycin Allergy Hives Verified 07/07/23 08:34 - Social History Does the pt smoke?: No Smoking Status: Never smoker Does the pt drink ETOH?: No Does the pt have substance abuse?: No - Immunizations Immunizations are current?: Yes - POLST Patient has POLST: No PD ED PE NORMAL - Vitals Vital signs reviewed: Yes - General General: Alert and oriented X 3, Well developed/nourished, Other (appears in pain from lower abd.) - Cardiac Cardiac: RRR, No murmur - Respiratory Respiratory: Clear bilaterally - Abdomen Abdomen: Normal bowel sounds, Soft, Non distended, No organomegaly, Other (lower abd pain and tendenress without rebound/nor percussion tenderness. ) - Rectal Rectal: Deferred - Back Back: No CVA TTP - Derm Derm: Normal color, Warm and dry - Extremities Extremities: Normal ROM s pain - Neuro Neuro: Alert and oriented X 3, No motor deficit, Normal speech Results - Vitals Vitals: Vital Signs - 24 hr 07/07/23 07/07/23 07/07/23 08:34 10:53 13:03 Temperature 36.7 C Heart Rate 77 65 58 L Respiratory 20 15 15 Rate Blood Pressure 153/92 H 125/84 H 134/87 H O2 Saturation 100 94 98 Oxygen O2 Source Room air - Labs Labs: Laboratory Tests 07/07/23 07/07/23 07/07/23 08:45 08:45 09:56 WBC 4.7 L RBC 4.41 Hgb 13.1 Hct 40.1 MCV 90.9 MCH 29.7 MCHC 32.7 RDW 12.2 Plt Count 272 MPV 9.2 Neut # (Auto) 2.5 Lymph # (Auto) 1.7 [place] # (Auto) 0.3 Eos # (Auto) 0.1 Baso # (Auto) 0.0 Absolute Nucleated RBC 0.00 Nucleated RBC % 0.0 Sodium 138 Potassium 4.5 Chloride 104 Carbon Dioxide 28 Anion Gap 6.0 BUN 9 Creatinine 0.8 Estimated GFR (MDRD) 78 L Glucose 153 H Calcium 9.3 Total Bilirubin 0.2 AST 24 ALT 26 Alkaline Phosphatase 58 Total Protein 6.6 Albumin 4.2 Globulin 2.4 Albumin/Globulin Ratio 1.8 Lipase 35 Urine Color YELLOW Urine Clarity CLEAR Urine pH 6.0 Ur Specific [place] 1.010 Urine Protein NEGATIVE Urine Glucose (UA) NEGATIVE Urine Ketones NEGATIVE Urine Occult Blood LARGE H Urine Nitrite NEGATIVE Urine Bilirubin NEGATIVE Urine Urobilinogen 0.2 (NORMAL) Ur Leukocyte Esterase NEGATIVE Urine RBC 6-10 H Urine WBC 0-3 Ur Squamous Epith Cells FEW Squamous Urine Bacteria Rare Ur Microscopic Review INDICATED Urine Culture Comments NOT INDICATED Urine HCG, Qual NEGATIVE - Rads (name of study) abd/pelvic CT Relevant Findings:: Prelim report reviewed, EMP independent interpretation of test PD Medical Decision Making - ED course Complexity details: reviewed results (CT showing area of colitis in lower colon and sigmoid area. No free air nor fluid. No other acute process. ), re-evaluated patient (improved with meds given after IV start. ), considered differential (consider ovarian, pelvic pains, UTI/pyelonEphrITIS, colon related causes. ), d/ w patient ED course: doing better with regard to pain after meds given here. Also with recurrent headaches. Labs without notable improvement. CT showing area of colitis. Departure - Departure Disposition: 01 Home, Self Care Clinical Impression: Colitis, acute, Abdominal pain Condition: Stable Record reviewed to determine appropriate education?: Yes Prescriptions: Docusate Sodium 100Mg Capsule [Colace 100Mg Capsule] 100 mg PO DAILY #20 cap Naproxen 500 mg PO BID #20 tab Oxycodone HCl/Acetaminophen [Percocet 5-325 mg Tablet] 1 each PO Q6H PRN #15 tablet PRN Reason: pain Ondansetron Odt [Zofran] 4 mg TL Q6H PRN #10 tablet PRN Reason: Nausea / Vomiting Comments: Stay well-hydrated. Your CT scan shows some inflammation of the sigmoid colon localized. This likely is related to a local irritation such as a diverticula or such. Localized colitis like this is typically treated with anti-inflammatories and consideration of stool softener as well as symptom medicine for nausea and pain. Typically antibiotics are deferred unless more obvious infectious rather than inflammatory cause (mucous in the stool, bloody stool, fever, generalized pain, repetitive vomiting etc.). Initially started with naproxen anti-inflammatory and docusate stool softener. Stay hydrated. Add Tylenol every 4-6 hours if needed for pain 500 to 650 mg. Add oxycodone/acetaminophen if needed for worse pains. I would anticipate improvement over the next few days and resolution by 3 to 5 days for the most part. Recheck if not better in that timeframe and return sooner if worse. I sent your prescriptions to [facility] pharmacy. On your CT scan, there were no signs of kidney stones, ovarian cysts, localized abscesses etc. Your appendix appeared normal. There was the finding of the sigmoid colitis. I am prescribing a short course of narcotic pain medication for you. These are potentially dangerous and addictive medications that should be used carefully. These medications may constipate you. Take an vaoy-pju-yhjclcv stool softener such as docusate twice daily with plenty of water while taking these medications. If you go 24 hours without a bowel movement, take [id number] MiraLAX, per package instructions. Do not drink or drive while taking these medications. If you received narcotic or sedating medications while in the emergency department do not drive for 24 hours. Store this medication in a safe, secure place and out of reach of children. It is a violation of federal law to give or sell this medication to another person or to use in a manner other than prescribed. The ED will not refill narcotic prescriptions, including prescriptions lost or stolen. You can dispose of unwanted medications at the [facility]'s office or at several pharmacies such as [facility]. Forms: PCP List Discharge Date/Time: 07/07/23 13:03
[2023-07-07 09:09] LABS: ALBUMIN 4.2 g/dL (3.2-5.5); ALBUMIN/GLOBULIN RATIO 1.8 (1.0-2.2); BILIRUBIN,TOTAL 0.2 mg/dL (0.2-1.0); CALCIUM 9.3 mg/dL (8.5-10.3); CREATININE 0.8 mg/dL (0.6-1.3); POTASSIUM 4.5 mmol/L (3.5-4.5); TOTAL PROTEIN 6.6 g/dL (6.4-8.9)
[2023-07-07] MEDS ORDERED: HYDROmorphone 1 MG/ML CARPUJECT IVP STA ×2 (09:58→12:14)
[2023-07-07] MEDS ORDERED: SODIUM CHLORIDE 0.9% 1,000 ML IV STA (09:58)
[2023-07-07] MEDS ORDERED: ONDANSETRON 4 MG/2 ML VIAL IVP STA (09:58)
[2023-07-07] MEDS ORDERED: KETOROLAC 15 MG/ML VIAL IVP STA (09:58)
[2023-07-07 10:06] LABS: BILIRUBIN,URINE NEGATIVE (NEGATIVE); GLUCOSE, URINE (UA) NEGATIVE (NEGATIVE); KETONES,URINE (UA) NEGATIVE (NEGATIVE); LEUKOCYTE ESTERASE, URINE NEGATIVE (NEGATIVE); NITRITE,URINE NEGATIVE (NEGATIVE); OCCULT BLOOD,URINE LARGE (NEGATIVE); PROTEIN,URINE NEGATIVE (NEGATIVE); UROBILINOGEN,URINE 0.2 (NORMAL) E.U./dL (NORMAL)
[2023-07-07 10:13] LABS: BACTERIA,URINE Rare /HPF (None Seen); CLARITY,URINE CLEAR (CLEAR); HCG UR QUAL NEGATIVE; SQUAMOUS EPITHELIAL CELL,UR FEW Squamous (<= Few); WBC,URINE 0-3 /HPF (0-5)
[2023-07-07] MEDS ORDERED: iohexoL-300 100 ML VIAL IVP ONE (10:56)
--- NOTE | 2023-07-07 11:19 | CT Report ---
PROCEDURE: ABDOMEN/PELVIS W INDICATIONS: RLQ pain onset this AM CONTRAST: 100ml omni 300 TECHNIQUE: After the administration of IV contrast, 5 mm thick sections acquired from the diaphragms to the symp hysis. 5 mm thick coronal and sagittal reformats were acquired. For radiation dose reduction, the f ollowing was used: automated exposure control, adjustment of mA and/or kV according to patient size. COMPARISON: 05/12/2021 FINDINGS: Image quality: Excellent. Lung bases and heart: Unremarkable. Liver: No solid mass. Diffuse fatty liver infiltration can be seen. Gallbladder and biliary tree: Cholecystectomy Spleen: No splenomegaly. Pancreas: No pancreatic ductal dilation. Adrenals: No adrenal nodule. Kidneys and ureters: No hydronephrosis. No renal cystic lesion which requires follow up. No solid mas s. Bowel and peritoneum: In this patient with this given history, scrutiny is given to the appendix. The appendix appears normal. No focal right lower quadrant inflammatory changes are seen. Mild wall thickening can be seen involving the distal colon. The sigmoid colon is tortuous and is see n into the right lower quadrant of the abdomen. No bowel distension. No pathologic free fluid. Lymph nodes: No central or retroperitoneal adenopathy. Vessels: No infrarenal aortic aneurysm. PELVIS Reproductive organs: Unremarkable. Bladder: No abnormal wall thickening, accounting for underdistension. Pelvic lymph nodes: No pelvic adenopathy by size criteria. Bones: No aggressive osseous abnormality. Other: No significant ventral or inguinal hernia. IMPRESSION: Normal appendix. There is mild distal colitis, with the sigmoid colon tortuous and seen into the right lower quadrant. Additional findings: Fatty liver infiltration Cholecystectomy Reviewed by: Tc Severino MD on 07/07/2023 10:17 AM [place] Approved by: Tc Severino MD on 07/07/2023 10:17 AM [place] Station ID: [id number]
[2023-07-07 13:11] VITALS: BP 134/87; O2SAT 98
== END 2023-07-07 13:03 | disposition home or self-care (01) ==
LOC: ED 08:31
DX: K52.9 Noninfective gastroenteritis and colitis, unspecified (principal); E11.9 Type 2 diabetes mellitus without complications; Z79.85 Long-term (current) use of injectable non-insulin antidiabetic drugs
CPT/HCPCS: 36415; 74177; 80053; 81001; 81025; 83690; 85025; 96374; 96375; 96376; 99283; 99284; J1170; Q9967; 81003; 87086

== ENCOUNTER 2023-11-01 11:24 | Emergency (ER) | payer OTHER ==
[2023-11-01 11:45] LABS: BASOPHILS # (AUTO) 0.1 10^3/uL (0.0-0.1); BASOPHILS % (AUTO) 0.9 %; EOSINOPHILS # (AUTO) 0.1 10^3/uL (0.0-0.7); EOSINOPHILS % (AUTO) 1.6 %; HCT - HEMATOCRIT 42.9 % (37.0-47.0); HGB - HEMOGLOBIN 13.8 g/dL (12.0-16.0); LYMPHOCYTES # (AUTO) 2.6 10^3/uL (1.5-3.5); LYMPHOCYTES % (AUTO) 37.1 %; MEAN CORPUSCULAR HEMOGLOBIN 29.1 pg (27.0-31.0); MEAN CORPUSCULAR HGB CONC 32.2 g/dL (32.0-36.0); MEAN CORPUSCULAR VOLUME 90.5 fL (81.0-99.0); MEAN PLATELET VOLUME 9.3 fL (7.9-10.8); MONOCYTES # (AUTO) 0.5 10^3/uL (0.0-1.0); MONOCYTES % (AUTO) 6.5 %; NEUTROPHILS # (AUTO) 3.7 10^3/uL (1.5-6.6); NEUTROPHILS % (AUTO) 53.6 %; PLT - PLATELET COUNT 374 10^3/uL (130-450); RED BLOOD COUNT 4.74 10^6/uL (4.20-5.40); RED CELL DISTRIBUTION WIDTH 12.8 % (12.0-15.0); WHITE BLOOD COUNT 6.9 x10^3/uL (4.8-10.8)
[2023-11-01 12:10] LABS: ALBUMIN 4.2 g/dL (3.2-5.5); ALBUMIN/GLOBULIN RATIO 1.6 (1.0-2.2); BILIRUBIN,TOTAL 0.3 mg/dL (0.2-1.0); CALCIUM 9.3 mg/dL (8.5-10.3); CREATININE 0.8 mg/dL (0.6-1.3); POTASSIUM 4.1 mmol/L (3.5-4.5); TOTAL PROTEIN 6.9 g/dL (6.4-8.9)
[2023-11-01 12:28] LABS: GLUCOSE, URINE (UA) NEGATIVE (NEGATIVE); KETONES,URINE (UA) NEGATIVE (NEGATIVE); LEUKOCYTE ESTERASE, URINE NEGATIVE (NEGATIVE); NITRITE,URINE NEGATIVE (NEGATIVE); OCCULT BLOOD,URINE LARGE (NEGATIVE); PROTEIN,URINE TRACE mg/dL (NEGATIVE); UROBILINOGEN,URINE 0.2 (NORMAL) E.U./dL (NORMAL)
[2023-11-01 12:31] LABS: CLARITY,URINE CLEAR (CLEAR); HCG UR QUAL NEGATIVE
[2023-11-01 12:33] LABS: BILIRUBIN,URINE NEGATIVE (NEGATIVE); ICTOTEST,URINE NEGATIVE
[2023-11-01] MEDS: SODIUM CHLORIDE 0.9% 1,000 ML IV STA (12:41)
[2023-11-01 12:43] LABS: RBC,URINE TNTC /HPF (0-5); SQUAMOUS EPITHELIAL CELL,UR FEW Squamous (<= Few)
[2023-11-01 12:44] LABS: BACTERIA,URINE Moderate /HPF (None Seen); CRYSTALS,URINE 0-2 Calcium Oxalate /LPF
[2023-11-01] MEDS: MORPHINE 2 MG/ML CARPUJECT IVP STA (12:50)
[2023-11-01] MEDS: KETOROLAC 15 MG/ML VIAL IVP STA (12:51)
[2023-11-01] MEDS: ONDANSETRON 4 MG/2 ML VIAL IVP STA (12:51)
--- NOTE | 2023-11-01 13:45 | ED Physician Documentation ---
PD HPI ABD PAIN - Stated complaint Stated Complaint: SEVERE PX - Chief complaint Chief Complaint: Abd Pain - History obtained from History obtained from: Patient - Additional information Additional information: Patient is a 43-year-old female presenting for evaluation of right flank pain that started abruptly 1 hour ago. Reports it feels like a pressure as if she is in labor. Reports associated nausea and vomiting. Has had a similar symptom on Sunday which resolved. Has a history of prior kidney stones and this feels similar. Denies fever, chest pain, difficulty breathing. Reports pain does radiate towards the bladder. Denies hematuria or dysuria. Review of Systems Constitutional: denies: Fever Cardiac: denies: Chest pain / pressure Respiratory: denies: Dyspnea GI: reports: Abdominal Pain, Nausea, Vomiting : denies: Dysuria, Hematuria PD PAST MEDICAL HISTORY - Past Medical History Past Medical History: Yes Cardiovascular: None Respiratory: None Neuro: None Endocrine/Autoimmune: Type 2 diabetes GI: C.difficile [employer]: Ovarian cysts, Fibroids : None HEENT: None Psych: Anxiety Musculoskeletal: Fibromyalgia Derm: None - Past Surgical History Past Surgical History: No General: Cholecystectomy Ortho: Other HEENT: Tonsil/Adenoidectomy - Present Medications Home Medications: Ambulatory Orders Medication Instructions Recorded Confirmed Dulaglutide [Trulicity] 3 mg PO Q7D 05/12/21 07/07/23 Metoclopramide [Reglan] 5 mg PO QID PRN 05/12/21 07/07/23 Cyclobenzaprine [Flexeril] 10 mg PO TID PRN #20 tablet 08/14/21 07/07/23 Ergocalciferol [Vitamin D2] 1 cap PO DAILY 08/14/21 07/07/23 Hyoscyamine Sulfate 1 tab PO DAILY 08/14/21 07/07/23 Meclizine HCl [Motion Sickness] 25 mg PO Q6H PRN #30 tablet 06/04/23 07/07/23 Docusate Sodium 100Mg Capsule 100 mg PO DAILY #20 cap 07/07/23 [Colace 100Mg Capsule] Naproxen 500 mg PO BID #20 tab 07/07/23 Ondansetron Odt [Zofran] 4 mg TL Q6H PRN #10 tablet 07/07/23 Oxycodone HCl/Acetaminophen 1 each PO Q6H PRN #15 tablet 07/07/23 [Percocet 5-325 mg Tablet] traZODone [Desyrel] 50 mg PO HS PRN 07/07/23 07/07/23 Nitrofurantoin [Macrobid] 1 cap PO BID #10 cap 11/01/23 Ondansetron Odt [Zofran] 4 mg TL Q6H PRN #10 tablet 11/01/23 Oxycodone HCl/Acetaminophen 1 each PO Q6H PRN #14 tablet 11/01/23 [Percocet 5-325 mg Tablet] Tamsulosin [Flomax] 0.4 mg PO DAILY #14 cap 11/01/23 - Allergies Allergies/Adverse Reactions: Allergies Allergy/AdvReac Type Severity Reaction Status Date / Time cephalexin monohydrate * Allergy Rash Verified 11/01/23 11:32 [From Keflex] Penicillins Allergy Hives Verified 11/01/23 11:32 Sulfa (Sulfonamide Allergy Rash Verified 11/01/23 11:32 Antibiotics) vancomycin Allergy Hives Verified 11/01/23 11:32 - Social History Does the pt smoke?: No Smoking Status: Never smoker Does the pt drink ETOH?: No Does the pt have substance abuse?: No - Immunizations Immunizations are current?: Yes - POLST Patient has POLST: No PD ED PE NORMAL - General General: Alert and oriented X 3, No acute distress, Well developed/nourished - HEENT HEENT: Atraumatic, Moist mucous membranes, Pharynx benign - Neck Neck: Supple, no meningeal sign - Cardiac Cardiac: RRR - Respiratory Respiratory: No respiratory distress, Clear bilaterally - Abdomen Abdomen: Normal bowel sounds, Soft, Non tender, Non distended - Back Back: Other (Right CVA tenderness) - Derm Derm: Warm and dry - Neuro Neuro: Normal speech Results - Vitals Vitals: Vital Signs - 24 hr 11/01/23 11/01/23 11/01/23 11:30 13:26 15:00 Temperature 36.6 C 36.6 C Heart Rate 84 79 75 Respiratory 16 18 18 Rate Blood Pressure 136/78 H 125/86 H 124/86 H O2 Saturation 100 98 98 11/01/23 15:42 Temperature Heart Rate 76 Respiratory 18 Rate Blood Pressure 137/86 H O2 Saturation 96 Oxygen O2 Source Room air - Labs Labs: Laboratory Tests 11/01/23 11/01/23 11/01/23 11:40 11:40 12:18 WBC 6.9 RBC 4.74 Hgb 13.8 Hct 42.9 MCV 90.5 MCH 29.1 MCHC 32.2 RDW 12.8 Plt Count 374 MPV 9.3 Neut # (Auto) 3.7 Lymph # (Auto) 2.6 [place] # (Auto) 0.5 Eos # (Auto) 0.1 Baso # (Auto) 0.1 Absolute Nucleated RBC 0.00 Nucleated RBC % 0.0 Sodium 139 Potassium 4.1 Chloride 105 Carbon Dioxide 26 Anion Gap 8.0 BUN 10 Creatinine 0.8 Estimated GFR (MDRD) 78 L Glucose 118 H Calcium 9.3 Total Bilirubin 0.3 AST 28 ALT 23 Alkaline Phosphatase 64 Total Protein 6.9 Albumin 4.2 Globulin 2.7 Albumin/Globulin Ratio 1.6 Lipase 20 Urine Color DARK YELLOW Urine Clarity CLEAR Urine pH 6.0 Ur Specific [place] >=1.030 H Urine Protein TRACE Urine Glucose (UA) NEGATIVE Urine Ketones NEGATIVE Urine Occult Blood LARGE H Urine Nitrite NEGATIVE Urine Bilirubin NEGATIVE Urine Urobilinogen 0.2 (NORMAL) Ur Leukocyte Esterase NEGATIVE Urine RBC TNTC H Urine WBC 4-5 Ur Squamous Epith Cells FEW Squamous Urine Crystals 0-2 Calcium Oxalate Urine Bacteria Moderate H Ur Microscopic Review INDICATED Urine Culture Comments NOT INDICATED Urine HCG, Qual NEGATIVE PD Medical Decision Making - ED course Complexity details: reviewed results, re-evaluated patient, d/w patient ED course: Patient presenting for evaluation of right flank pain with a prior history of kidney stones. CBC, chemistries, urinalysis were obtained and reviewed. Urine demonstrates some blood as well as presence of bacteria. A CT scan of the abdomen and pelvis was obtained which demonstrates a right ureter stone at the right UVJ. Patient's symptoms improved with IV Toradol, morphine, 0.5 mg of Dilaudid along with Zofran and IV fluids. Given presence of bacteria we will opt to treat for an infection. Patient has numerous antibiotic allergies and also does not want an antibiotic that could make her more prone to C. difficile as she has a history of this. Thus I will avoid fluoroquinolones. However she is allergic to cephalosporins, penicillin and sulfa. Will start patient on Macrobid. Patient counseled on treatment plan as well as concerning symptoms to return for. She was given information for local urologist for follow-up. Departure - Departure Disposition: 01 Home, Self Care Clinical Impression: Right ureteral stone Condition: Stable Instructions: ED Stone Renal W Colic Follow-Up: Shimon Kong MD [Provider Admit Priv/Credential] - [facility] [Provider Group] Prescriptions: Tamsulosin [Flomax] 0.4 mg PO DAILY #14 cap Nitrofurantoin [Macrobid] 1 cap PO BID #10 cap Oxycodone HCl/Acetaminophen [Percocet 5-325 mg Tablet] 1 each PO Q6H PRN #14 tablet PRN Reason: pain Ondansetron Odt [Zofran] 4 mg TL Q6H PRN #10 tablet PRN Reason: Nausea / Vomiting Comments: You have a 4 mm stone in the right ureter which is the tube that connects the kidney to the bladder. The stone is located near the bladder. I am sending pre scriptions to help you with the stone to [facility] in [place] including a narcotic pain medication. I have listed the name of a local urologist to I would recommend for follow-up. However you may need to get a referral from the [facility]. I am also starting you on an antibiotic as your urine shows bacteria. Return to the ER with any worsening symptoms. I am prescribing a short course of narcotic pain medication for you. These are potentially dangerous and addictive medications that should be used carefully. These medications may constipate you. Take an gmoi-[id number] stool softener (d ocusate) twice daily with plenty of water while taking these medications. If you go 24 hours without a bowel movement, take [id number] miralax, per package instructions. Do not drink or drive while taking these medications. If you received narcotic or sedating medications while in the emergency department, do not drive for 24 hours. Store this medication in a safe, secure place and out of reach of children. It is a violation of federal law to give or sell this medication to another person or to use in a manner other than prescribed. The ED will not refill narcotic prescriptions, including prescriptions lost or stolen. To dispose of unwanted medications: 1. [facility] at [address] in [place] has a medication drop box. They accept prescription medications (in pill form) Sunday through Sunday 9:00 a.m. to 5:00 p.m. 2. The [facility] [employer] accepts prescription medications (in pill form only) for disposal year round. Call for more information. 3. Contact the [facility] for the next [facility] sponsored prescription drug collection event. , [phone], or x [phone]; Note that many narcotic pain relievers also contain Tylenol/acetaminophen. Please ensure that your total dose of acetaminophen from all sources does not exceed 3 g (3000 mg) per day. Forms: PCP List Discharge Date/Time: 11/01/23 15:49
[2023-11-01] MEDS: HYDROmorphone 0.5 MG/0.5 ML SYRINGE IVP STA (13:50)
--- NOTE | 2023-11-01 15:21 | CT Report ---
PROCEDURE: ABDOMEN/PELVIS WO INDICATIONS: R flank pain TECHNIQUE: A CT scan of the abdomen and pelvis was performed without the use of intravenous contrast. Images we re recorded and evaluated at appropriate window settings. Reformats: coronal and sagittal. For radiat ion dose reduction, the following was used: automated exposure control, adjustment of mA and/or kV ac cording to patient size. COMPARISON: 07/07/2023 FINDINGS: Image quality: Diagnostic. Lung bases and heart: Unremarkable. Liver: No solid mass. Gallbladder and biliary tree: Surgically absent. No biliary dilation, accounting for post-cholecystec bola state. Spleen: No splenomegaly. Pancreas: No pancreatic ductal dilation. Adrenals: No adrenal nodule. Kidneys and ureters: There is a 4 mm obstructing distal right ureteral stone visualized at the right ureterovesicular junction. There is mild right hydroureteronephrosis with mild perinephric and periur eteral stranding. Left kidney is normal in appearance. No left-sided renal stones. Left ureter is nor mal in course and caliber. Bowel and peritoneum: No bowel distension. No pathologic free fluid. Lymph nodes: No central or retroperitoneal adenopathy. Vessels: No infrarenal aortic aneurysm. PELVIS Reproductive organs: Unremarkable. Bladder: No wall thickness, accounting for underdistention. Pelvic lymph nodes: No pelvic adenopathy by size criteria. Bones: No aggressive osseous abnormality. Other: No significant ventral or inguinal hernia. IMPRESSION: Obstructing 4 mm distal right ureteral stone visualized at the right ureterovesicular junction. Mild right hydroureteronephrosis with associated inflammatory stranding. Recommend clinical correlation fo r possible concurrent infectious uropathy. Reviewed by: Lai Dee MD on 11/01/2023 3:20 PM PST Approved by: Lai Dee MD on 11/01/2023 3:20 PM PST Station ID: [id number]
[2023-11-01 15:47] VITALS: BP 137/86; O2SAT 96
== END 2023-11-01 15:49 | disposition home or self-care (01) ==
LOC: ED 11:24
DX: N20.1 Calculus of ureter (principal); E11.9 Type 2 diabetes mellitus without complications; Z87.442 Personal history of urinary calculi; Z88.1 Allergy status to other antibiotic agents; Z88.0 Allergy status to penicillin; Z88.2 Allergy status to sulfonamides; Z79.899 Other long term (current) drug therapy
CPT/HCPCS: 36415; 74176; 80053; 81001; 81025; 83690; 85025; 96374; 96375; 99284; J1170; 81003; 87086